=== PATIENT | female | born 1985 | race Caucasian/White ===

== ENCOUNTER 2021-01-17 16:40 | Emergency (ER) | payer OTHER ==
[2021-01-17 17:44] LABS: BASOPHIL 0.3 % (0-2); EOSINOPHIL 0.3 % (0-5); HCT 40.5 % (37.0-47.0); HGB 14.4 g/dl (12.5-16.0); LYMPHOCYTE 22.2 % (15-48); MCH 32.7 pg (25.0-31.0); MCHC 35.6 g/dL (32.0-36.0); MONOCYTE 6.7 % (0-12); MPV 9.2 fL (6.0-9.5); NEUTROPHIL 70.2 % (41-80); NRBC 0; PLT 378 K/uL (150-400); RDW 12.4 % (11.5-14.0); WBC 9.1 K/uL (4.0-10.5)
[2021-01-17 17:48] LABS: PROTHROMBIN TIME 12.5 SECONDS (11.4-13.6); PTT 28.1 SECONDS (22.2-34.7)
[2021-01-17 17:55] LABS: ALBUMIN 4.1 g/dL (3.4-5.0); BILIRUBIN - TOTAL 0.5 mg/dL (0.2-1.0); BUN/CREAT RATIO (CALC) 15.5 RATIO; CREATININE 0.71 mg/dL (0.51-0.95); GLOBULIN (CALCULATION) 4.1 g/dL; POTASSIUM 3.4 mmol/L (3.5-5.1); TOTAL PROTEIN 8.2 g/dL (6.4-8.2)
[2021-01-17 18:05] LABS: PRO-BNP 76 pg/mL (<125)
[2021-01-17 18:31] LABS: BILIRUBIN NEGATIVE (NEGATIVE); BLOOD 2+ Ery/uL (NEGATIVE); CLARITY CLEAR (CLEAR); COLOR YELLOW (YELLOW); GLUCOSE (U) NORMAL (NORMAL); LEUKOCYTES NEGATIVE Leu/uL (NEGATIVE); NITRITE NEGATIVE (NEGATIVE); PROTEIN NEGATIVE (NEGATIVE); SPECIFIC GRAVITY 1.025 (1.001-1.030); UROBILINOGEN 0.2 mg/dL (0.2-1.0)
[2021-01-17 18:33] LABS: MARIJUANA (THC) NEGATIVE (NEGATIVE)
[2021-01-17 18:34] LABS: AMPHETAMINES NEGATIVE (NEGATIVE); BARBITURATES NEGATIVE (NEGATIVE); ECSTASY (MDMA) NEGATIVE (NEGATIVE); METHADONE NEGATIVE (NEGATIVE); OPIATES NEGATIVE (NEGATIVE); OXYCODONE NEGATIVE (NEGATIVE)
[2021-01-17] MEDS ORDERED: ZESTRIL5 MG PO (18:45)
[2021-01-17] MEDS ORDERED: HCTZ12.5 MG PO (18:45)
[2021-01-17 18:51] LABS: BACTERIA TRACE
== END 2021-01-17 18:56 | disposition home or self-care (01) ==
LOC: FER 16:40
PROVIDERS: Internal Medicine
DX: R07.89 Other chest pain (principal); I10 Essential (primary) hypertension
CPT/HCPCS: 36415; 71045; 80053; 80305; 81001; 83880; 84484; 85025; 85610; 85730; 93005

== ENCOUNTER 2021-02-21 10:58 | Emergency (ER) | payer OTHER ==
[~2021-02-21 10:58] MED LIST: HCTZ12.5 MG PO; ZESTRIL5 MG PO
== END 2021-02-21 12:40 | disposition home or self-care (01) ==
LOC: FER 10:58
DX: S93.412A Sprain of calcaneofibular ligament of left ankle, initial encounter (principal); S93.492A Sprain of other ligament of left ankle, initial encounter; X50.1XXA Overexertion from prolonged static or awkward postures, initial encounter; Y92.009 Unspecified place in unspecified non-institutional (private) residence as the place of occurrence of the external cause
CPT/HCPCS: 73610

== ENCOUNTER 2021-05-26 00:10 | Emergency (ER) | payer SELFPAY ==
[2021-05-26 01:23] LABS: BASOPHIL 0.7 % (0-2); EOSINOPHIL 0.9 % (0-5); HCT 42.5 % (37.0-47.0); HGB 15.4 g/dl (12.5-16.0); LYMPHOCYTE 31.3 % (15-48); MCH 34.3 pg (25.0-31.0); MCHC 36.2 g/dL (32.0-36.0); MCV 94.7 fL (78.0-100.0); MONOCYTE 6.6 % (0-12); MPV 9.1 fL (6.0-9.5); NEUTROPHIL 59.9 % (41-80); NRBC 0; PLT 298 K/uL (150-400); RBC 4.49 M/uL (4.20-5.40); RDW 12.3 % (11.5-14.0)
[2021-05-26 01:26] LABS: AMPHETAMINES NEGATIVE (NEGATIVE); BARBITURATES NEGATIVE (NEGATIVE); ECSTASY (MDMA) NEGATIVE (NEGATIVE); MARIJUANA (THC) NEGATIVE (NEGATIVE); METHADONE NEGATIVE (NEGATIVE); OPIATES NEGATIVE (NEGATIVE); OXYCODONE NEGATIVE (NEGATIVE)
[2021-05-26 02:08] LABS: ALBUMIN 3.1 g/dL (3.4-5.0); BILIRUBIN - TOTAL 0.4 mg/dL (0.2-1.0); BUN/CREAT RATIO (CALC) 17.3 RATIO; CREATININE 0.98 mg/dL (0.51-0.95); GLOBULIN (CALCULATION) 3.9 g/dL; POTASSIUM 3.5 mmol/L (3.5-5.1)
== END 2021-05-26 03:29 | disposition home or self-care (01) ==
LOC: FER 00:10
PROVIDERS: Emergency Medicine
DX: R56.9 Unspecified convulsions (principal); R00.0 Tachycardia, unspecified; F10.129 Alcohol abuse with intoxication, unspecified; Y90.8 Blood alcohol level of 240 mg/100 ml or more; Z20.822 Contact with and (suspected) exposure to COVID-19
CPT/HCPCS: 36415; 70450; 80053; 80305; 85025; 93005; G0480; J1953; J7030; U0002

== ENCOUNTER 2021-09-07 16:19 | Inpatient (IN) | payer OTHER ==
[~2021-09-07] VITALS: Ht 160 cm; Wt 82.6 kg
[2021-09-07 17:07] LABS: BASOPHIL 0.2 % (0-2); EOSINOPHIL 0.2 % (0-5); HCT 40.4 % (37.0-47.0); HGB 13.9 g/dl (12.5-16.0); LYMPHOCYTE 15.5 % (15-48); MCH 31.7 pg (25.0-31.0); MCHC 34.4 g/dL (32.0-36.0); MONOCYTE 2.5 % (0-12); MPV 9.7 fL (6.0-9.5); NEUTROPHIL 80.4 % (41-80); NRBC 0; PLT 242 K/uL (150-400); RBC 4.39 M/uL (4.20-5.40); RDW 12.5 % (11.5-14.0)
[2021-09-07 17:08] LABS: WBC 6.5 K/uL (4.0-10.5)
[2021-09-07 17:25] LABS: ALBUMIN 3.2 g/dL (3.4-5.0); BILIRUBIN - TOTAL 0.3 mg/dL (0.2-1.0); BUN/CREAT RATIO (CALC) 12.7 RATIO; CREATININE 0.71 mg/dL (0.51-0.95); POTASSIUM 3.4 mmol/L (3.5-5.1); TOTAL PROTEIN 7.2 g/dL (6.4-8.2)
[2021-09-07 17:28] LABS: LACTIC ACID 1.4 mmol/L (0.4-1.9)
[2021-09-07 19:30] LABS: BILIRUBIN NEGATIVE (NEGATIVE); BLOOD 2+ Ery/uL (NEGATIVE); CLARITY CLEAR (CLEAR); COLOR YELLOW (YELLOW); GLUCOSE (U) NORMAL (NORMAL); LEUKOCYTES NEGATIVE Leu/uL (NEGATIVE); NITRITE NEGATIVE (NEGATIVE); PROTEIN 1+ mg/dL (NEGATIVE); SPECIFIC GRAVITY <=1.005 (1.001-1.030); UROBILINOGEN 0.2 mg/dL (0.2-1.0); pH 6.5 (5.0-9.0)
[2021-09-07 19:36] LABS: BACTERIA TRACE; URINARY WBC RARE
[2021-09-07] MEDS ORDERED: BUSPIRONE HCL15 MG PO (22:15)
[2021-09-07] MEDS ORDERED: LEXAPRO20 MG PO (22:15)
[2021-09-08 06:33] LABS: BASOPHIL 1.1 % (0-2); EOSINOPHIL 0 % (0-5); HCT 41.8 % (37.0-47.0); HGB 14.1 g/dl (12.5-16.0); LYMPHOCYTE 14.1 % (15-48); MCHC 33.7 g/dL (32.0-36.0); MCV 94.8 fL (78.0-100.0); MPV 11.1 fL (6.0-9.5); NRBC 0; PLT 221 K/uL (150-400); RBC 4.41 M/uL (4.20-5.40); RDW 12.5 % (11.5-14.0)
[2021-09-08 06:36] LABS: WBC 5.5 K/uL (4.0-10.5)
[2021-09-08 07:48] LABS: BUN/CREAT RATIO (CALC) 17.3 RATIO; CREATININE 0.52 mg/dL (0.51-0.95); POTASSIUM 3.6 mmol/L (3.5-5.1)
--- NOTE | 2021-09-08 10:42 | NUR ---
09/08/21 Ms. Thompson lives at home with her spouse. Her 2 children live btw her home and their father's home. She is employed at [employer]. Ms. Thompson chose [facility] for any 02 needs at discharge.
[2021-09-09 06:09] LABS: BASOPHIL 0.2 % (0-2); EOSINOPHIL 0 % (0-5); HCT 39.3 % (37.0-47.0); HGB 13.1 g/dl (12.5-16.0); LYMPHOCYTE 5.2 % (15-48); MCH 31.1 pg (25.0-31.0); MCHC 33.3 g/dL (32.0-36.0); MCV 93.3 fL (78.0-100.0); MONOCYTE 3.4 % (0-12); MPV 10.8 fL (6.0-9.5); NEUTROPHIL 89.9 % (41-80); NRBC 0; PLT 294 K/uL (150-400); RBC 4.21 M/uL (4.20-5.40); RDW 12.3 % (11.5-14.0)
[2021-09-09 06:14] LABS: WBC 15.5 K/uL (4.0-10.5)
[2021-09-09 07:49] LABS: ALBUMIN 2.6 g/dL (3.4-5.0); BILIRUBIN - TOTAL 0.1 mg/dL (0.2-1.0); BUN/CREAT RATIO (CALC) 30.2 RATIO; CREATININE 0.53 mg/dL (0.51-0.95); GLOBULIN (CALCULATION) 4.6 g/dL; POTASSIUM 3.6 mmol/L (3.5-5.1); TOTAL PROTEIN 7.2 g/dL (6.4-8.2)
[2021-09-10 05:57] LABS: BASOPHIL 0.2 % (0-2); EOSINOPHIL 0.1 % (0-5); HCT 36.7 % (37.0-47.0); HGB 12.2 g/dl (12.5-16.0); MCH 31.6 pg (25.0-31.0); MCHC 33.2 g/dL (32.0-36.0); MCV 95.1 fL (78.0-100.0); MONOCYTE 2.9 % (0-12); MPV 9.7 fL (6.0-9.5); NEUTROPHIL 87.4 % (41-80); NRBC 0; PLT 365 K/uL (150-400); RBC 3.86 M/uL (4.20-5.40); RDW 12.5 % (11.5-14.0)
[2021-09-10 06:02] LABS: WBC 12.2 K/uL (4.0-10.5)
[2021-09-10 06:40] LABS: BUN/CREAT RATIO (CALC) 29.6 RATIO; CREATININE 0.54 mg/dL (0.51-0.95); POTASSIUM 3.9 mmol/L (3.5-5.1)
[2021-09-11 06:09] LABS: BASOPHIL 0.3 % (0-2); EOSINOPHIL 0 % (0-5); HCT 36.3 % (37.0-47.0); HGB 12.1 g/dl (12.5-16.0); LYMPHOCYTE 7.7 % (15-48); MCH 31.5 pg (25.0-31.0); MCHC 33.3 g/dL (32.0-36.0); MCV 94.5 fL (78.0-100.0); MONOCYTE 3.6 % (0-12); MPV 10.1 fL (6.0-9.5); NEUTROPHIL 86.3 % (41-80); NRBC 0; PLT 386 K/uL (150-400); RBC 3.84 M/uL (4.20-5.40); RDW 12.4 % (11.5-14.0)
[2021-09-11 06:15] LABS: WBC 11.3 K/uL (4.0-10.5)
[2021-09-11 06:35] LABS: BUN/CREAT RATIO (CALC) 33.3 RATIO; CREATININE 0.51 mg/dL (0.51-0.95); POTASSIUM 3.8 mmol/L (3.5-5.1)
--- NOTE | 2021-09-11 19:09 | NUR ---
[address] STEVENS REGARDING PATIENT RESPIRATORY STATUS. PATIENT IS MAXED OUT ON AIRVO AND IS SAT LOWER 90'S THAT WILL DROP INTO THE 80'S SITTING STILL. RODNEY SPOKE WITH THE PATIENT ABOUT THE POTENTIAL FOR INTUBATION AND HOW SHE WAS BEING MOVED TO BE TREATED A ICU PATIENT AND RECIEVE MORE MEDICATIONS IF REQUIRED. PATIENT STATED SHE UNDERSTOOD AND HAD NO QUESTIONS AT THIS TIME. I SPOKE WITH PATIENT AND WE DISCUSSED HER CONCERNS AND ANSWERED ANY QUESTIONS SHE HAD. MOVED PATIENT TO ICU AND ALL BELONGINGS. GAVE REPORT TO ITALO RONDON.
[2021-09-12 04:32] LABS: BASOPHIL 0.3 % (0-2); EOSINOPHIL 0 % (0-5); HGB 11.7 g/dl (12.5-16.0); MCH 31.8 pg (25.0-31.0); MCHC 33.4 g/dL (32.0-36.0); MCV 95.1 fL (78.0-100.0); MONOCYTE 4.3 % (0-12); MPV 9.9 fL (6.0-9.5); NEUTROPHIL 87.1 % (41-80); NRBC 0; PLT 388 K/uL (150-400); RBC 3.68 M/uL (4.20-5.40); RDW 12.3 % (11.5-14.0); WBC 10.3 K/uL (4.0-10.5)
[2021-09-12 05:15] LABS: BUN/CREAT RATIO (CALC) 30.2 RATIO; CREATININE 0.63 mg/dL (0.51-0.95); POTASSIUM 3.9 mmol/L (3.5-5.1)
[2021-09-13 06:56] LABS: BASOPHIL 0.9 % (0-2); EOSINOPHIL 0 % (0-5); HCT 36.4 % (37.0-47.0); HGB 12.5 g/dl (12.5-16.0); LYMPHOCYTE 4.7 % (15-48); MCH 31.6 pg (25.0-31.0); MCHC 34.3 g/dL (32.0-36.0); MCV 92.2 fL (78.0-100.0); MONOCYTE 3.3 % (0-12); MPV 10.1 fL (6.0-9.5); NEUTROPHIL 83.3 % (41-80); NRBC 0.2; PLT 414 K/uL (150-400); RBC 3.95 M/uL (4.20-5.40); WBC 11.7 K/uL (4.0-10.5)
[2021-09-13 07:32] LABS: CREATININE 0.46 mg/dL (0.51-0.95); POTASSIUM 3.9 mmol/L (3.5-5.1)
[2021-09-15 06:45] LABS: BASOPHIL 0.1 % (0-2); EOSINOPHIL 0 % (0-5); HCT 39.7 % (37.0-47.0); HGB 13.8 g/dl (12.5-16.0); LYMPHOCYTE 4.3 % (15-48); MCH 31.5 pg (25.0-31.0); MCHC 34.8 g/dL (32.0-36.0); MCV 90.6 fL (78.0-100.0); MONOCYTE 4.2 % (0-12); NRBC 0; PLT 456 K/uL (150-400); RBC 4.38 M/uL (4.20-5.40); WBC 11.6 K/uL (4.0-10.5)
[2021-09-15 07:36] LABS: ALBUMIN 2.9 g/dL (3.4-5.0); BILIRUBIN - TOTAL 0.3 mg/dL (0.2-1.0); BUN/CREAT RATIO (CALC) 40.4 RATIO; CREATININE 0.52 mg/dL (0.51-0.95); GLOBULIN (CALCULATION) 3.6 g/dL; POTASSIUM 4.2 mmol/L (3.5-5.1); TOTAL PROTEIN 6.5 g/dL (6.4-8.2)
--- NOTE | 2021-09-15 09:47 | NUR ---
09/15 A referral was made to [facility] for 02 at 4L. Report given to Vika [facility].
[2021-09-15] MEDS ORDERED: PROVENTIL HFA6.7 GM INH (11:29)
[2021-09-15] MEDS ORDERED: DEXAMETHASONE 2M2 MG PO (11:29)
[2021-09-15] MEDS ORDERED: PANTOPRAZOLE SO40 MG PO (11:29)
[2021-09-15] MEDS ORDERED: COZAAR50 MG PO (11:29)
--- NOTE | 2021-09-15 13:16 | NUR ---
PATIENT DISCHARGED VIA WHEELCHAIR WITH OXYGEN AT 4 LITERS PER NASAL CANNULA. IV DCD, DISCHARGE INSTRUCTION GIVEN, VERBALIZED UNDERSTANDING.
== END 2021-09-15 13:00 | disposition home health service (06) | DRG 177 ==
LOC: FER 16:19 → FTCU 19:28 → FICU 09-11 11:09
PROVIDERS: Internal Medicine; Nurse Practitioner; Physician Assistant; ADMIT Internal Medicine
PROC: XW033E5 Introduction of Remdesivir Anti-infective into Peripheral Vein, Percutaneous Approach, New Technology Group 5 (ICD-10-PCS; 2021-09-07)
PROC: 8E0ZXY6 Isolation (ICD-10-PCS; 2021-09-07)
PROC: 5A0955A Assistance with Respiratory Ventilation, Greater than 96 Consecutive Hours, High Flow/Velocity Cannula (ICD-10-PCS; principal; 2021-09-09)
PROC: XW0DXM6 Introduction of Baricitinib into Mouth and Pharynx, External Approach, New Technology Group 6 (ICD-10-PCS; 2021-09-09)
DX: U07.1 COVID-19 (principal); J12.82 Pneumonia due to coronavirus disease 2019; J96.01 Acute respiratory failure with hypoxia; J15.9 Unspecified bacterial pneumonia; F32.A Depression, unspecified; I10 Essential (primary) hypertension; R73.9 Hyperglycemia, unspecified; T38.0X5A Adverse effect of glucocorticoids and synthetic analogues, initial encounter; F41.1 Generalized anxiety disorder; R91.1 Solitary pulmonary nodule; Z83.3 Family history of diabetes mellitus; Z90.89 Acquired absence of other organs
CPT/HCPCS: 36415; 36600; 71045; 71275; 80048; 80053; 81001; 82728; 82803; 83036; 83605; 83735; 84145; 84484; 84703; 85025; 93005; 94010; 94640; 94667; 94668; C9399; J0360; J0456; J0696; J1100; J1650; J2405; J7050; Q9967; U0002